=== PATIENT | male | born 1980 | race Caucasian/White ===

== ENCOUNTER → 2017-12-18 | Outpatient (REF) ==
[~2017-12-18] MED LIST: CIP500 PO; LOR5/325 PO; PYRI50TA PO; [UNRECOGNIZED DRUG - CODE] OS; [UNRECOGNIZED DRUG - CODE] PO
== END ==
LOC: AUD 09:20
PROVIDERS: ATTEND Nurse Practitioner Family
DX: Z01.10 Encounter for examination of ears and hearing without abnormal findings (principal)
CPT/HCPCS: 92552